=== PATIENT | male | born 1990 | race Caucasian/White ===

== ENCOUNTER 2017-12-13 15:47 | Emergency (ER) | payer SELFPAY ==
[2017-12-13 16:06] VITALS: RESP 18
[2017-12-13] MEDS ORDERED: PROPARACAINE 0.5% OPHTH DROPS 15 ML BTL LEFT EYE STA (17:13)
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
[2017-12-13] MEDS ORDERED: MORPHINE SULFATE 4 MG/ML SYRINGE IM STA (17:57)
[2017-12-13 20:30] VITALS: BP 129/63; PULSE 83; TEMP 97.5
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
== END 2017-12-13 20:29 | disposition home or self-care (01) ==
LOC: EC 15:47
DX: S05.12XD Contusion of eyeball and orbital tissues, left eye, subsequent encounter (principal); Z79.52 Long term (current) use of systemic steroids; Z79.899 Other long term (current) drug therapy; V99.XXXD Unspecified transport accident, subsequent encounter
CPT/HCPCS: 99283; 96372; J2270